=== PATIENT | female | born 1975 | race Caucasian/White ===

== ENCOUNTER → 2021-12-27 | Outpatient (REF) | payer OTHER | LOC: M LABCFH 11:48 | PROVIDERS: ATTEND Physician Assistant | DX: Z12.4 Encounter for screening for malignant neoplasm of cervix (principal); N72 Inflammatory disease of cervix uteri ==

== ENCOUNTER → 2024-03-15 | Outpatient (REF) | payer BC | LOC: M CFLAB 15:50 | PROVIDERS: ATTEND Physician Assistant | DX: Z12.4 Encounter for screening for malignant neoplasm of cervix (principal) ==

== ENCOUNTER → 2024-09-10 | Outpatient (REF) | LOC: M LABCFH 11:32 | PROVIDERS: ATTEND Physician Assistant | DX: N39.0 Urinary tract infection, site not specified (principal) ==